=== PATIENT | female | born 1955 | race Caucasian/White ===

== ENCOUNTER 2016-11-17 06:41 | Day surgery (SDC) | payer OTHER ==
[~2016-11-17] VITALS: Ht 152.4 cm; Wt 79.4 kg
[~2016-11-17 06:41] MED LIST: ACET-2650 PO; CETI10TA17 PO; DULO30CA48 PO; ENAL10TA PO; FLUT9.9S NSEACH; METF500T3 PO; OMEP20TA7 PO; RT-ALBUINH IH
[2016-11-17] MEDS ORDERED: NS IV 1000 ML 1,000 ML ONE (06:52)
[2016-11-17] MEDS ORDERED: NS IV 1000 ML 1,000 ML IV STA (07:15)
[2016-11-17 07:17] VITALS: BP 135/82
[2016-11-17] MEDS ORDERED: PROPOFOL INJECTION 50 ML IV ONE ×2 (08:23→11:37)
[2016-11-17] MEDS ORDERED: MIDAZOLAM 2 MG/2 ML (VERSED) VIAL ONE (08:24)
--- NOTE | 2016-11-17 12:17 | Discharge Inst-Simple/Standard ---
Discharge Inst-Standard Patient Instructions/Follow Up Plan of Care/Instructions/FU: Patient to follow up with Dr. Beth in 2 weeks. High fiber diet Activity as Tolerated: Yes Discharge Diet: Other Diet (High fiber diet), Coumadin Patient Diet ALONZO TAPIA APRN Nov 17, 2016 12:17
--- NOTE | 2016-11-17 12:18 | Progress Note-Post Operative ---
Post-Operative Progess Note Pre-Operative Diagnosis history of polyps Post-Operative Diagnosis multiple colonic polyps Post-Op Procedure Note Date of Procedure: Nov 17, 2016 Name of Procedure: colonosocpy with hot bx polypectomy x 7 and fulgaration x 4 Procedure Note/Findings see note Anesthesia Type per mini baccarat dealer Estimated blood loss (mL): none Specimen(s) collected polyps JUAN J AGARWAL DO Nov 17, 2016 12:18 pm
[2016-11-17 12:45] VITALS: BP 123/102
--- NOTE | 2016-11-17 12:47 | OPERATIVE REPORT ---
PROCEDURE PHYSICIAN: JUAN J AGARWAL DATE OF PROCEDURE: 11/17/2016 PREOPERATIVE DIAGNOSIS: History of colon polyps. POSTOPERATIVE DIAGNOSIS: History of colon polyps. PROCEDURE: Colonoscopy with hot biopsy polypectomy x 7 and fulguration x 4. SURGEON: Kirit. ANESTHESIA: Per SNIPPER. ESTIMATED BLOOD LOSS: None. COMPLICATIONS: None. INDICATIONS: The patient is a 61-year-old female with history of colon polyps. She understands the risks and benefits of the procedure and wished to proceed with procedure. Consent was signed on the chart. PROCEDURE: The patient was taken to the endoscopy suite, placed in left lateral recumbent position. Timeout was performed. Digital rectal exam was performed. There are no palpable polyps, masses, ulcerations. The scope was inserted in the rectum and advanced all the way to the cecum with minimal difficulty. Prep was adequate with irrigation and suction. Within the cecum a small polyp behind a fold was present which hot biopsy polypectomy was performed. The scope was then continued be slowly retracted back. Within the ascending colon a very small polyp was present which hot biopsy polypectomy was performed. The scope was continued to be slowly retracted back to the hepatic flexure and another polyp was present which hot biopsy polypectomy was performed. The scope was continued be slowly retracted back into the transverse colon where diverticulosis was present. There are two polyps present which hot biopsy polypectomies were performed. The scope was continuously retracted back within the descending colon. No polyps, masses or ulcerations were visualized. In the beginning there were moderate amount of diverticulosis present and then in the sigmoid colon started getting more moderate increasing amounts of diverticulosis present. There was one turn within the sigmoid colon, very difficult to navigate through which due to a significant amount of diverticulosis. At the rectosigmoid junction, began seeing more polyps, which hot biopsy polypectomies were performed for two of them. Four others were fulgurated which were very small in size. These were primarily in the rectum. The scope was then slowly retracted until completely removed noting no further pathology. There are still some polyps present within the rectosigmoid region, just due to already performing more fulguration and polypectomy. The patient will need to have repeat colonoscopy in approximately 3 months to reevaluate and perform. Would consider seeing gastroenterology. Job ID: [id number] Dictated Date: 11/17/2016 12:21:59 [address] Design Engineer Date: 11/17/2016 12:35:43 / jose MTDD
[2016-11-17 13:00] VITALS: BP 141/78
[2016-11-17 13:10] VITALS: BP 141/78
== END 2016-11-17 13:10 | disposition home or self-care (01) ==
LOC: SDC 06:41
PROVIDERS: ATTEND Surgery
DX: Z12.11 Encounter for screening for malignant neoplasm of colon (principal); K63.5 Polyp of colon; D12.2 Benign neoplasm of ascending colon; D12.3 Benign neoplasm of transverse colon; I10 Essential (primary) hypertension; Z79.899 Other long term (current) drug therapy
CPT/HCPCS: 82962

== ENCOUNTER → 2017-01-28 | Outpatient (CLI) | payer OTHER ==
--- NOTE | 2017-01-28 14:11 | Diagnostic Imaging Report ---
PROCEDURE: US Thyroid. TECHNIQUE: Multiple real-time grayscale images were obtained of the thyroid in various projections. INDICATION: Hyperthyroidism. FINDINGS: The right thyroid lobe is 5.4 x 2 x 2.3 cm. The left lobe is 5.4 x 1.9 x 2 cm. In the upper left thyroid pole, there is a 9 mm cystic lesion with central echogenicity, probably a complicated colloid cyst. No internal vascularity is demonstrated with color Doppler. In the right lobe, there are multiple mostly predominantly cystic lesions, all less than a centimeter in size with some demonstrating septations. The largest is 8 mm in size in the mid right lobe. IMPRESSION: Enlarged thyroid gland with multiple subcentimeter lesions bilaterally, mostly cystic. There is no dominant solid mass seen. Dictated by: Dictated on workstation # [id number]
--- NOTE | 2017-01-28 16:47 | Diagnostic Imaging Report ---
EXAMINATION: DEXA scan. INDICATION: Osteopenia. TECHNIQUE: Bone mineral density estimated based on dual energy radiography over the lumbar spine and femoral necks, was performed. FINDINGS: The lumbar spine T-score is -2.5. T score over the right femoral neck is -1 and on the left is -0.8. IMPRESSION: Osteoporosis. Dictated by: Dictated on workstation # [id number]
== END ==
LOC: RAD 10:21
PROVIDERS: ATTEND Nurse Practitioner Family
DX: M85.80 Other specified disorders of bone density and structure, unspecified site (principal); E05.90 Thyrotoxicosis, unspecified without thyrotoxic crisis or storm; M47.22 Other spondylosis with radiculopathy, cervical region
CPT/HCPCS: 76536; 77080

== ENCOUNTER 2017-04-02 10:00 | Outpatient (CLI) | payer OTHER ==
[~2017-04-02] VITALS: Ht 152.4 cm; Wt 79.4 kg
[~2017-04-02 10:00] MED LIST changes: +ALEN70TA2 PO; +CALC600T12 PO; +CELE200C PO; +CYCL5TAB PO; +DULO60CA58 PO; +MULT-35 PO
== END 2017-04-02 10:54 ==
LOC: PREOP 10:00
PROVIDERS: ATTEND Surgery
DX: Z01.818 Encounter for other preprocedural examination (principal); Z86.010 Personal history of colon polyps

== ENCOUNTER → 2017-10-15 | Outpatient (CLI) | payer OTHER ==
--- NOTE | 2017-10-18 22:30 | Diagnostic Imaging Report ---
Bilateral screening mammogram 2D views with tomosynthesis The current study was also evaluated with a Computer Aided Detection (CAD) system. INDICATION: Screening. No current complaints stated on the questionnaire. COMPARISON: 01/22/2015. FINDINGS: The breasts are composed of scattered fibroglandular densities. There are occasional benign-appearing calcifications. Allowing for technique and positional differences, no suspicious change is seen. IMPRESSION: No significant change. ACR BI-RADS Category 2: Benign findings. Result letter will be mailed to the patient. Note: At least 10% of breast cancer is not imaged by mammography. Dictated by: Dictated on workstation # [id number]
== END ==
LOC: RAD 13:25
PROVIDERS: ATTEND Nurse Practitioner Family
DX: Z12.31 Encounter for screening mammogram for malignant neoplasm of breast (principal)
CPT/HCPCS: 77067